=== PATIENT | female | born 1955 | race Two or more races ===

== ENCOUNTER 2019-07-04 09:34 | Inpatient (IN) | payer MEDICAID, MEDICARE ==
[~2019-07-04] VITALS: Ht 167.6 cm; Wt 65.4 kg
[2019-07-04] MEDS ORDERED: SODIUM CHLORIDE 0.9% 1,000 ML IV ONE ×2 (13:08)
[2019-07-04 14:14] LABS: Basophils # (auto) 0 uL; Basophils % (auto) 0.3 % (0.0-2.0); Eosinophils # (auto) 0 uL; Eosinophils % (auto) 0.3 % (0.0-7.0); Hematocrit 34.4 % (36.0-46.0); Hemoglobin 10.7 g/dL (12.2-16.2); Lymphocytes % (auto) 10.6 % (10.0-50.0); Mean Corpuscular Hemoglobin 18.9 pg (28.0-32.0); Mean Corpuscular Hgb Conc. 31.1 g/dL (32.0-36.0); Mean Corpuscular Volume 60.8 fL (80.0-100.0); Monocytes # (auto) 0.4 uL; Neutrophils # (auto) 8.1 uL; Neutrophils % (auto) 84.8 % (37.0-80.0); Platelet Count (auto) 222 10^3/uL (140-450); Red Blood Cells 5.66 10^6/uL (4.0-5.20); White Blood Cell 9.5 10^3/uL (4.4-10.8)
[2019-07-04 14:31] LABS: Albumin 3.7 g/dL (3.4-5.0); Amylase 59 U/L (25-115); Anion Gap 6 (5-15); Blood Urea Nitrogen 17 mg/dL (7-18); Calcium 8.5 mg/dL (8.5-10.1); Carbon Dioxide 27 mmol/L (21-32); Chloride 108 mmol/L (98-107); Glucose 115 mg/dL (74-106); Lipase 159 U/L (73-393); Potassium 3.8 mmol/L (3.5-5.1); Sodium 141 mmol/L (136-145)
[2019-07-04 14:37] LABS: Alanine Aminotransferase 25 U/L (13-56); Alkaline Phosphatase 66 U/L (45-117); Aspartate Aminotransferase 26 U/L (15-37); BUN/Creatinine Ratio 18.1; Bilirubin, Total 0.5 mg/dL (0.2-1.0); GFR African American 77 mL/min; GFR Non-African American 64 mL/min; Total Protein 7.9 g/dL (6.4-8.2)
[2019-07-04 14:46] LABS: INR 1.02 (0.9-1.15); Partial Thromboplastin Time 24.3 sec (23.64-32.05)
[2019-07-04] MEDS ORDERED: IPRATROPIUM BROM 0.5 MG/2.5ML INH SOL NEB PRN (16:30)
[2019-07-04] MEDS ORDERED: ALBUTEROL SULF 2.5 MG/0.5ML(0.5%) NEB SOLN NEB PRN (16:30)
[2019-07-04] MEDS ORDERED: MORPHINE SULF INJ 2 MG/ML SYRINGE 1ML IV PRN ×2 (16:30)
[2019-07-04] MEDS ORDERED: ONDANSETRON HCL 4 MG/2 ML VIAL IV PRN (16:30)
[2019-07-04] MEDS ORDERED: NITROGLYCERIN 0.4 MG SL TAB SL PRN (16:30)
--- NOTE | 2019-07-04 17:44 | NUR ---
MS admit from [facility] admitted to tele/MS after SBAR received. Patient oriented to SHA GARCIA, RN primary RN, unit, room, bed, and unit policies regarding patient care and visiting hours. Patient weighed by bedscale and encouraged to call if they need something. All questions and concerns addressed, patient verbalized understanding.
[2019-07-04 17:45] VITALS: BP 144/87
[2019-07-04] MEDS: hydrALAZINE HCL 20 MG/ML VL IV SCH (18:19)
--- NOTE | 2019-07-04 19:00 | NUR ---
OPENING NOTE Received report from day shift RN. Patient is A&O X's 4 with no s/s of distress. Patient reports pain to right hip only when it is touched or when she is moved. Educated patient on pain management/medication and POC. Patient reports not wanting any pain medication at this time. Educated patient to use call light when in need of assistance or when needing to use bed polanco. Patient verbalized understanding. Bed is in lowest/locked position with side rails up X's 2 and call light is within reach of patient. Will continue care.
--- NOTE | 2019-07-04 19:30 | NUR ---
ELEVATED TEMP Patient has a temp of 102.8. Patient refusing to have blankets removed to lower temp and did not want any medication to help lower temperature. Educated patient on importance of decreasing temperature. Patient verbalized understanding and allowed for an application of an ice pack and to lower room temperature. Will reassess temperature.
[2019-07-04 21:47] VITALS: BP 143/73
--- NOTE | 2019-07-04 22:22 | NUR ---
TEMP REASSESSMENT 99.0 . continuing cooling measures
[2019-07-04] MEDS: HYDROcodone-ACET 5/325MG TAB PO PRN (22:25)
--- NOTE | 2019-07-04 22:30 | NUR ---
INCONTINENT Patient urinated in bed. Patient was in too much pain to have linen changed and to be cleaned. Educated patient that we can medicate her to relieve the pain of the hip before we changed her. Patient verbalized understanding and agreed to pain medication now. After the pain medication, patient tolerated linen change well. Will continue care. Educated patient again to use call light when she needs to urinate so we can place her on a bedpan. Patient verbalized understanding.
[2019-07-05 01:24] VITALS: BP 129/63
[2019-07-05] MEDS ORDERED: PRAV20TA3 PO (02:38)
[2019-07-05] MEDS ORDERED: CITA10TA59 PO (02:38)
[2019-07-05] MEDS ORDERED: METO25TA36 PO (02:38)
[2019-07-05] MEDS ORDERED: DONE10TA17 PO (02:38)
--- NOTE | 2019-07-05 04:06 | NUR ---
PT SEEN SLEEPING IN BED ON RA, SPO2 92%, BS CLEAR AND DIMINISHED. PRN NEB TX NOT GIVEN AT THIS TIME.
[2019-07-05 04:56] VITALS: BP 138/70
[2019-07-05] MEDS: hydrALAZINE HCL 20 MG/ML VL IV SCH ×4 (05:09→17:59)
--- NOTE | 2019-07-05 05:49 | NUR ---
PT REMAINS ASLEEP IN BED ON RA WITH SPO2 96%, BS CLEAR AND DIMINISHED. PRN NEB TX NOT GIVEN AT THIS TIME.
[2019-07-05 06:35] LABS: Basophils # (auto) 0.1 uL; Hemoglobin 9.9 g/dL (12.2-16.2); Mean Corpuscular Volume 58.2 fL (80.0-100.0); Monocytes # (auto) 0.6 uL
[2019-07-05 06:38] LABS: Basophils % (auto) 0.9 % (0.0-2.0); Eosinophils # (auto) 0.1 uL; Eosinophils % (auto) 1.4 % (0.0-7.0); Hematocrit 30.2 % (36.0-46.0); Lymphocytes # (auto) 1.1 uL; Lymphocytes % (auto) 12.7 % (10.0-50.0); Mean Corpuscular Hemoglobin 19.1 pg (28.0-32.0); Mean Corpuscular Hgb Conc. 32.8 g/dL (32.0-36.0); Monocytes % (auto) 6.5 % (0.0-12.0); Neutrophils # (auto) 7.1 uL; Neutrophils % (auto) 78.5 % (37.0-80.0); Platelet Count (auto) 182 10^3/uL (140-450); Red Blood Cells 5.19 10^6/uL (4.0-5.20); Red Cell Distribution Width 15.4 % (11.8-14.3); White Blood Cell 9.1 10^3/uL (4.4-10.8)
[2019-07-05 07:05] LABS: Potassium 4.1 mmol/L (3.5-5.1)
[2019-07-05 07:10] LABS: Albumin 3.1 g/dL (3.4-5.0); BUN/Creatinine Ratio 17.5; Calcium 8.4 mg/dL (8.5-10.1)
[2019-07-05 07:13] LABS: Bilirubin, Total 0.9 mg/dL (0.2-1.0)
--- NOTE | 2019-07-05 07:30 | NUR ---
Opening Shift Note Assumed care of patient, awake and alert. No S/S of distress/SOB or pain. Instructed on POC and to call for assist PRN, will continue to monitor for changes Q1hr and PRN. Fall risk precautions in place michela safety protocol.
[2019-07-05 09:00] VITALS: BP 137/57
[2019-07-05] MEDS: FAMOTIDINE 20 MG TAB PO SCH (09:51)
--- NOTE | 2019-07-05 12:37 | NUR ---
Hospitalist at bedside MD Chen at bedside, aware of patient status. MD spoke with family and patient at bedside to address any questions or concerns they had. New orders received, will carry out new orders and cont to monitor patient.
[2019-07-05] MEDS ORDERED: CITALOPRAM HYDROBR 20 MG TAB PO ONE ×2 (12:45→14:15)
[2019-07-05 13:00] VITALS: BP 142/69
[2019-07-05] MEDS ORDERED: METOPROLOL SUCCINATE XL 50 MG TAB PO SCH (13:04)
[2019-07-05] MEDS: METOPROLOL SUCCINATE XL 50 MG TAB PO SCH (15:08)
[2019-07-05 15:30] LABS: % Iron Saturation 6.5 % (15-50)
[2019-07-05 17:00] VITALS: BP 146/70
[2019-07-05] MEDS: HYDROcodone-ACET 5/325MG TAB PO PRN (17:13)
--- NOTE | 2019-07-05 19:01 | NUR ---
PT CHECKED FOR PRN TX. PT DENIES SOB, NO ACUTE RESP DISTRESS NOTED. PT AWARE TO PAGE IF A TX IS NEEDED. HR 94 RR 16 POX 97% ON ROOM AIR. B/S CLEAR.
--- NOTE | 2019-07-05 19:15 | NUR ---
Care Endorsed Endorsed care to night RN. Patient resting in bed, no signs of SOB/distress, or pain at this time.
--- NOTE | 2019-07-05 19:26 | NUR ---
Opening Shift Note Assumed care of patient, awake and alert x 4, but fatigued. No S/S of distress/SOB or pain. Bed is in lowest position and locked. Call light within reach. Board updated. Bed alarm on. Bedside commode available. Instructed on POC and to call for assist PRN, will continue to monitor for changes Q1hr and PRN.
[2019-07-05 22:00] VITALS: BP 120/68
[2019-07-06] MEDS: hydrALAZINE HCL 20 MG/ML VL IV SCH ×5 (00:09→23:53)
[2019-07-06 04:00] VITALS: BP 146/67
[2019-07-06 05:47] LABS: Urine Bacteria NONE SEEN /hpf (None Seen); Urine Blood Negative /uL (Negative); Urine Mucus FEW (None Seen); Urine Specific Gravity 1.022 (1.001-1.035); Urine WBC 3 /hpf (0 - 5)
[2019-07-06 08:59] VITALS: BP 123/65
[2019-07-06] MEDS: CITALOPRAM HYDROBR 20 MG TAB PO SCH (09:54)
[2019-07-06] MEDS: FAMOTIDINE 20 MG TAB PO SCH (09:54)
[2019-07-06] MEDS: METOPROLOL SUCCINATE XL 50 MG TAB PO SCH (09:54)
--- NOTE | 2019-07-06 11:30 | NUR ---
Called Ortho Called Orthopaedic MD Calvert per MD Chen pending patient consult. Left a message, waiting call back at this time.
--- NOTE | 2019-07-06 11:30 | NUR ---
Hospitalist at bedside MD Chen at bedside, aware of patient status. New orders received, will carry out new orders and cont to monitor patient.
--- NOTE | 2019-07-06 11:44 | NUR ---
RT NOTE: PRN BREATHING TX. NOT INDICATED AT THIS TIME. NO S/S OF RESPIRATORY DISTRESS NOTED. PT. HR. 89, RR 16, POX 96% R/A. PT. AWARE TO NOTIFY RN IF BREATHING TX. IS INDICATED.
[2019-07-06] MEDS: FERROUS SULFATE 325 MG TAB PO SCH ×2 (12:02→18:24)
[2019-07-06 12:44] VITALS: BP 130/69
--- NOTE | 2019-07-06 16:00 | NUR ---
Ortho at bedside MD Calvert at bedside, aware of patient status. . states patient can put weight on right leg as tolerated. PT eval in place. Will cont to monitor patient.
[2019-07-06 17:00] VITALS: BP 112/68
--- NOTE | 2019-07-06 18:45 | NUR ---
Respiratory note: PT ASSESSED FOR PRN MED NEB TX. HR 97, RR 16, SPO2 98% ON RA. NO SIGNS OF ANY RESPIRATORY DISTRESS NOTED. ADVISED PT TO CALL IF TX IS NEEDED. RT NAME AND PAGER NUMBER WRITTEN ON PT'S BOARD.
--- NOTE | 2019-07-06 19:11 | NUR ---
Care Endorsed Endorsed care to night RN. Patient resting in bed, no signs of SOB/distress, or pain at this time.
[2019-07-06] MEDS: HYDROcodone-ACET 5/325MG TAB PO PRN (19:24)
--- NOTE | 2019-07-06 19:28 | NUR ---
Opening Shift Note Assumed care of patient, awake and alert x 4, but fatigued. No S/S of distress/SOB or pain. Bed is in lowest position and locked. Call light within reach. Board updated. Bed alarm on. Bedside commode available. SonRan, at bedside. Instructed on POC and to call for assist PRN, will continue to monitor for changes Q1hr and PRN.
--- NOTE | 2019-07-06 20:02 | NUR ---
Patient refused to have IV replaced. Patient became very upset and started crying when I told her that our hospital policy is to replace IVs every 72 hours. Patient educated on importance of changing IV sites to prevent infection. She refused to have the IV discontinued and replaced. She acknowledged she was puting herself at risk but does not want to have another IV inserted, at least right now. Will continue to assess.
[2019-07-06 22:00] VITALS: BP 116/63
--- NOTE | 2019-07-06 23:53 | NUR ---
Holding Hydralazine because BP is 116/52 with MAP of 70. MAP and low systolic score make me concerned BP may drop to unhealthy levels if hydralazine is administered. Will continue to assess.
[2019-07-07 05:00] VITALS: BP 110/57
[2019-07-07] MEDS: hydrALAZINE HCL 20 MG/ML VL IV SCH ×3 (05:12→17:53)
[2019-07-07 08:57] VITALS: BP 113/74
[2019-07-07] MEDS: METOPROLOL SUCCINATE XL 50 MG TAB PO SCH (10:00)
[2019-07-07] MEDS: FAMOTIDINE 20 MG TAB PO SCH (10:00)
[2019-07-07] MEDS: FERROUS SULFATE 325 MG TAB PO SCH ×2 (10:31→14:53)
[2019-07-07] MEDS: CITALOPRAM HYDROBR 20 MG TAB PO SCH (10:31)
[2019-07-07 12:36] VITALS: BP 120/76
[2019-07-07 14:06] LABS: Folate (Folic Acid) 11.03 ng/mL (5.38-24)
--- NOTE | 2019-07-07 14:22 | NUR ---
Respiratory note: Respiratory note: PT ASSESSED FOR PRN MED NEB TX. HR 95, RR 16, SPO2 97% ON RA. NO SIGNS OF ANY RESPIRATORY DISTRESS NOTED. No tx indicated. ADVISED PT TO CALL IF TX IS NEEDED. .
[2019-07-07] MEDS ORDERED: CYANOCOBALAMIN (B-12) 1000 MCG/1 ML VIAL SUBCUT ONE (14:45)
[2019-07-07] MEDS: HYDROcodone-ACET 5/325MG TAB PO PRN (15:09)
--- NOTE | 2019-07-07 15:47 | NUR ---
Assessment Pt is 64 yr old alert and oriented female. Prior to admit, pt lived with son, Ran Ortega, who is her emergency contact at [phone]. Prior to admit, was was ambulatory and independent with ADL's, cooking and cleaning. Pt's primary is Dr. Dougherty. Pt receives disability income and does not have an AD on file. Pt is currently not able to walk well due to a hip fracture and would benefit from a SNF placement. Dr. Hidalgo entered room during assessment and asked if pt would be willing to go to a SNF and prefers going to [facility]. Pt would also benefit from either a w/c or walker depending on PT consult. per 's recommendation and son's request, Pt will be transported to SNF via ambulance. Addendum: 07/07/19 at 1554 by BJORN HESTER SS Amended: Links added.
--- NOTE | 2019-07-07 16:08 | NUR ---
re-assessment Per consult SNF placement for rehab. Patient agrees to SNF. Per patients phill DAYDaija to be contacted. MD order sent to [facility]. Waiting motion picture printer back now. Addendum: 07/07/19 at 1609 by Osiris Ray Amended: Links added.
--- NOTE | 2019-07-07 16:23 | NUR ---
re-assessment Per Stiven at [facility] patient has been accepted to room [address] Hidalgo is the accepting MD. General transport will transport patient to facility between 6 and 7pm today post discharge. Patient has been notified as well as Dianna ARAMBULA. Addendum: 07/07/19 at 1625 by Osiris ARZATE Amended: Links added.
--- NOTE | 2019-07-07 16:34 | NUR ---
[facility], WAS LEFT ON HOLD FOR 10 MINUTES. I CALLED BACK LEFT MY CONTACT INFORMATION SO THEY CAN CALL ME WHEN THEY ARE READY FOR REPORT.
--- NOTE | 2019-07-07 16:40 | NUR ---
REPORT GIVEN TO DIAN HERMOSILLO R.N. AT [facility].
[2019-07-07 16:41] VITALS: BP 113/70
--- NOTE | 2019-07-07 18:43 | NUR ---
TRANSFERRED VIA GENERAL TRANSPORTATION TO [facility]. NO SIGNS OF DISTRESS.
== END 2019-07-07 19:00 | DRG 536 ==
LOC: EDBD 09:34 → ER 09:50 → EAST 09:51
PROVIDERS: ADMIT Nurse Practitioner Acute Care; ATTEND Internal Medicine
DX: S32.401A Unspecified fracture of right acetabulum, initial encounter for closed fracture (principal); S32.591A Other specified fracture of right pubis, initial encounter for closed fracture; I10 Essential (primary) hypertension; E78.00 Pure hypercholesterolemia, unspecified; J45.909 Unspecified asthma, uncomplicated; D50.9 Iron deficiency anemia, unspecified; W06.XXXA Fall from bed, initial encounter; E78.5 Hyperlipidemia, unspecified; G89.29 Other chronic pain; F03.90 Unspecified dementia, unspecified severity, without behavioral disturbance, psychotic disturbance, mood disturbance, and anxiety; Y93.89 Activity, other specified; Y92.89 Other specified places as the place of occurrence of the external cause; Y99.8 Other external cause status; Z79.899 Other long term (current) drug therapy
CPT/HCPCS: 36415; 70450; 71045; 72192; 80053; 81001; 82140; 82150; 82607; 82746; 83036; 83540; 83550; 83690; 84443; 84484; 85025; 85610; 85730; 87040; 96360; 97163; G0378